=== PATIENT | female | born 1955 | race Caucasian/White ===

== ENCOUNTER 2017-03-18 16:02 | Emergency (ER) | payer BC ==
[2017-03-18] MEDS ORDERED: Sucralfate TAB* 1 GM PO ONE ×2 (16:32→20:24)
[2017-03-18] MEDS ORDERED: Pantoprazole IV* 40 MG IV ONE (16:32)
--- NOTE | 2017-03-18 17:03 | RAD ---
INDICATION: Chest pain COMPARISON: None. TECHNIQUE: Single AP portable view of the chest was obtained. FINDINGS: Image quality is compromised due to the relative inferiority of a portable chest x-ray. The heart and mediastinum exhibit normal size and contour. The lungs are grossly clear. There is no evidence of a large pleural effusion. Visualized bones are normal for the patient's age. IMPRESSION: No radiographic evidence for acute cardiopulmonary abnormality on this portable chest x-ray.
[2017-03-18 17:04] LABS: ABS Basophils 0 10^3/ul (0-0.2); ABS Eosinophils 0 10^3/ul (0-0.6); ABS Lymphocytes 0.3 10^3/ul (1.0-4.8); ABS Monocytes 0.2 10^3/ul (0-0.8); ABS Neutrophils 6.3 10^3/ul (1.5-7.7); ABS Nucleated RBC 0 10^3/ul; Eosinophil % 0 % (0-6); Hematocrit 40 % (35-47); Hemoglobin 13.8 g/dl (12.0-16.0); Lymphocyte % 5.1 % (25-47); Mean Corpuscular HGB Conc 35 g/dl (31-36); Mean Corpuscular Hemoglobin 34 pg (27-31); Mean Corpuscular Volume 97 fL (80-97); Mean Platelet Volume 8 um3 (7.4-10.4); Nucleated Red Blood Cells % 0; Platelet Count 272 10^3/ul (150-450); Red Blood Count 4.12 10^6/ul (4.0-5.4); Red Cell Distribution Width 13 % (10.5-15); White Blood Count 6.8 10^3/ul (3.5-10.8)
[2017-03-18 17:17] LABS: INR 0.9 (0.77-1.02)
[2017-03-18 17:26] LABS: EGFR Non-African American 76.9 (>60)
[2017-03-18 20:49] VITALS: BP 96/65
--- NOTE | 2017-03-19 12:18 | ED ---
Clara Vega Thomas, scribed for Anson Alvares MD on 03/18/17 at 1634 . HPI Chest Pain - HPI Summary HPI Summary: This patient is a 61 year old F BIBA to [facility] with a chief complaint of chest pain since this morning. The chest pain radiates to the back and she reports tingling in both hands. The patient rates the pain 3/10 in severity. Symptoms improved after the patient was given ASA 324 and oxygen and nitroglycerin in the ambulance. Patient reports vomiting, nausea, diaphoresis, difficulty standing, SOB and reports that it felt like my throat had closed up. The patient has experienced episodes of similar pain in the past. PSHx includes cholecystectomy. - History of Current Complaint Chief Complaint: EDChestPainROMI Time Seen by Provider: 03/18/17 16:18 Hx Obtained From: Patient Onset/Duration: Started Hours Ago, Still Present Timing: Constant, Lasting Hours Current Severity: Mild Pain Intensity: 3 Pain Scale Used: 0-10 Numeric Chest Pain Radiates: Yes Chest Pain Radiates To:: Back Aggravating Factor(s): Nothing Alleviating Factor(s): Other: - Symptoms alleviated by nitroglycerin. The patient was also given ASA 324 and oxygen in the ambulance. Associated Signs and Symptoms: Positive: Other: - Patient reports vomiting, nausea, diaphoresis, difficulty standing, SOB and reports that it felt like my throat had closed up. The patient has experienced episodes of similar pain in the past. - Allergy/Home Medications Allergies/Adverse Reactions: Allergies Allergy/AdvReac Type Severity Reaction Status Date / Time Sulfa Antibiotics Allergy Itching Verified 03/18/17 16:17 PMH/Surg Hx/FS Hx/Imm Hx GI History: Reports: Hx Gall Bladder Disease EENT History: Reports: Other - meniere's disease - Surgical History Surgery Procedure, Year, and Place: cholecystectomy Infectious Disease History: No Infectious Disease History: Denies: Traveled Outside the [place] in Last 30 Days - Family History Known Family History: Positive: Hypertension, Other - Heart arrhythmia, Prostate cancer - Social History Alcohol Use: Occasionally Substance Use Type: Reports: None Smoking Status (MU): Former Smoker Review of Systems Positive: Skin Diaphoresis. Negative: Fever Positive: Chest Pain Positive: Shortness Of Breath Positive: Vomiting, Nausea Positive: Other - difficulty standing All Other Systems Reviewed And Are Negative: Yes Physical Exam - Summary Physical Exam Summary: Appearance: The patient is well-nourished in no acute distress and in no acute pain. Skin: The skin is warm and dry and skin color reflects adequate perfusion. HEENT: The head is normocephalic and atraumatic. The pupils are equal and reactive. The conjunctivae are clear and without drainage. Nares are patent and without drainage. Mouth reveals moist mucous membranes and the throat is without erythema and exudate. The external ears are intact. The ear canals are patent and without drainage. The tympanic membranes are intact. Neck: the neck is supple with full range of motion and non-tender. There are no carotid bruits. There is no neck vein distension. Respiratory: Chest is non-tender. Lungs are clear to auscultation and breath sounds are symmetrical and equal. Cardiovascular: Heart is regular rate and rhythm. There is no murmur or rub auscultated. There is no peripheral edema and pulses are symmetrical and equal. Abdomen: The abdomen is soft and there is tenderness in the epigastrium. There are normal bowel sounds heard in all four quadrants and there is no organomegaly palpated. Musculoskeletal: There is no back tenderness noted. Extremities are non-tender with full range of motion. There is good capillary refill. There is no peripheral edema or calf tenderness elicited. Neurological: Patient is alert and oriented to person, place and time. The patient has symmetrical motor strength in all four extremities. Cranial nerves are grossly intact. Deep tendon reflexes are symmetrical and equal in all four extremities. Psychiatric: The patient has an appropriate affect and does not exhibit any anxiety or depression. Triage Information Reviewed: Yes Vital Signs On Initial Exam: Initial Vitals Temp Pulse Resp BP Pulse Ox 97.5 F 62 20 122/83 99 03/18/17 16:12 03/18/17 16:12 03/18/17 16:12 03/18/17 16:12 03/18/17 16:12 Vital Signs Reviewed: Yes - Leanna Coma Scale Coma Scale Total: 15 Diagnostics - Vital Signs Vital Signs Temp Pulse Resp BP Pulse Ox 03/18/17 16:12 97.5 F 62 20 122/83 99 - Laboratory Lab Results: Lab Results 03/18/17 03/18/17 03/18/17 Range/Units 16:54 16:54 16:54 WBC 6.8 (3.5-10.8) 10^3/ul RBC 4.12 (4.0-5.4) 10^6/ul Hgb 13.8 (12.0-16.0) g/dl Hct 40 (35-47) % MCV 97 (80-97) fL MCH 34 H (27-31) pg MCHC 35 (31-36) g/dl RDW 13 (10.5-15) % Plt Count 272 (150-450) 10^3/ul MPV 8 (7.4-10.4) um3 Neut % (Auto) 91.9 H (38-83) % Lymph % (Auto) 5.1 L (25-47) % Benson % (Auto) 2.7 (1-9) % Eos % (Auto) 0 (0-6) % Baso % (Auto) 0.3 (0-2) % Absolute Neuts (auto) 6.3 (1.5-7.7) 10^3/ul Absolute Lymphs (auto) 0.3 L (1.0-4.8) 10^3/ul Absolute Monos (auto) 0.2 (0-0.8) 10^3/ul Absolute Eos (auto) 0 (0-0.6) 10^3/ul Absolute Basos (auto) 0 (0-0.2) 10^3/ul Absolute Nucleated RBC 0 10^3/ul Nucleated RBC % 0 INR (Anticoag Therapy) 0.90 (0.77-1.02) D-Dimer, Quantitative 218 (Less Than 230) ng/mL Sodium 137 (133-145) mmol/L Potassium 3.6 (3.5-5.0) mmol/L Chloride 103 (101-111) mmol/L Carbon Dioxide 25 (22-32) mmol/L Anion Gap 9 (2-11) mmol/L BUN 15 (6-24) mg/dL Creatinine 0.76 (0.51-0.95) mg/dL Est GFR ( Amer) 98.8 (>60) Est GFR (Non-Af Amer) 76.9 (>60) BUN/Creatinine Ratio 19.7 (8-20) Glucose 95 (70-100) mg/dL Lactic Acid (0.5-2.0) mmol/L Calcium 8.8 (8.6-10.3) mg/dL Total Bilirubin 1.00 (0.2-1.0) mg/dL AST 74 H (13-39) U/L ALT 37 (7-52) U/L Alkaline Phosphatase 79 (34-104) U/L Troponin I 0.00 (<0.04) ng/mL Total Protein 6.4 (6.4-8.9) g/dL Albumin 3.7 (3.2-5.2) g/dL Globulin 2.7 (2-4) g/dL Albumin/Globulin Ratio 1.4 (1-3) TSH 0.83 (0.34-5.60) mcIU/mL 03/18/17 03/18/17 Range/Units 16:54 19:22 WBC (3.5-10.8) 10^3/ul RBC (4.0-5.4) 10^6/ul Hgb (12.0-16.0) g/dl Hct (35-47) % MCV (80-97) fL MCH (27-31) pg MCHC (31-36) g/dl RDW (10.5-15) % Plt Count (150-450) 10^3/ul MPV (7.4-10.4) um3 Neut % (Auto) (38-83) % Lymph % (Auto) (25-47) % Benson % (Auto) (1-9) % Eos % (Auto) (0-6) % Baso % (Auto) (0-2) % Absolute Neuts (auto) (1.5-7.7) 10^3/ul Absolute Lymphs (auto) (1.0-4.8) 10^3/ul Absolute Monos (auto) (0-0.8) 10^3/ul Absolute Eos (auto) (0-0.6) 10^3/ul Absolute Basos (auto) (0-0.2) 10^3/ul Absolute Nucleated RBC 10^3/ul Nucleated RBC % INR (Anticoag Therapy) (0.77-1.02) D-Dimer, Quantitative (Less Than 230) ng/mL Sodium (133-145) mmol/L Potassium (3.5-5.0) mmol/L Chloride (101-111) mmol/L Carbon Dioxide (22-32) mmol/L Anion Gap (2-11) mmol/L BUN (6-24) mg/dL Creatinine (0.51-0.95) mg/dL Est GFR ( Amer) (>60) Est GFR (Non-Af Amer) (>60) BUN/Creatinine Ratio (8-20) Glucose (70-100) mg/dL Lactic Acid 0.8 (0.5-2.0) mmol/L Calcium (8.6-10.3) mg/dL Total Bilirubin (0.2-1.0) mg/dL AST (13-39) U/L ALT (7-52) U/L Alkaline Phosphatase (34-104) U/L Troponin I 0.01 (<0.04) ng/mL Total Protein (6.4-8.9) g/dL Albumin (3.2-5.2) g/dL Globulin (2-4) g/dL Albumin/Globulin Ratio (1-3) TSH (0.34-5.60) mcIU/mL Result Diagrams: 03/18/17 16:54 03/18/17 16:54 Lab Statement: Any lab studies that have been ordered have been reviewed, and results considered in the medical decision making process. - Radiology CXR Xray Interpretation: Positive (See Comments) - No radiographic evidence for acute cardiopulmonary abnormality on this portable chest x-ray. ED physician has reviewed this radiology report and agrees. Radiology Interpretation Completed By: Radiologist - EKG 1643 Cardiac Rate: NL EKG Rhythm: Sinus Rhythm Chest Pain Course/Dx - Course Course Of Treatment: Ms. Negrete presented with epigastric and chest pain that she has had many times in the past. Today it was worse going clear up to her throat and making her feel as though she couldn't breathe. She has been diagnosed with GERD and esophageal spasm in the past. She improved in the EMS but still had some discomfort. She had tenderness in the epigastrium. I felt that this was a GI problem and treated her accordingly with improvement. She did have labs including a delayed troponin which were negative. She has PRN prilosec at home and I will give her a short course of sulcrafate. - Diagnoses Provider Diagnoses: Epigastric pain Discharge - Discharge Plan Condition: Stable Disposition: HOME Prescriptions: Sucralfate TAB* [Carafate*] 1 gm PO QID #40 tab Patient Education Materials: Epigastric Pain (ED) Referrals: [facility] [facility] [place]] - 3 Days Additional Instructions: Call the [facility] to find a primary care physician and make an appointment. Return to the emergency department for any new or worsening symptoms. The documentation as recorded by the Clara roberts Thomas accurately reflects the service I personally performed and the decisions made by me, Anson Alvares MD.
== END 2017-03-18 20:54 | disposition home or self-care (01) ==
LOC: ED 16:02
DX: R10.13 Epigastric pain (principal); R07.9 Chest pain, unspecified; Z88.2 Allergy status to sulfonamides; Z87.891 Personal history of nicotine dependence
CPT/HCPCS: 36415; 71045; 80053; 83605; 84443; 84484; 85025; 85379; 85610; 93005; 96374; 99284; A9270-GY